=== PATIENT | female | born 1955 | race American Indian/Alaskan Native ===

== ENCOUNTER 2019-12-02 15:41 | Emergency (ER) | payer OTHER ==
[2019-12-02] MEDS ORDERED: oxyCODONE /ACETAMINOPHEN 5-325MG TAB PO ONE (16:49)
--- NOTE | 2019-12-02 16:50 | Emergency Department Report ---
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 LANDED ON L KNEE. NO CO L KNEE PAIN. NO OTHER INJURY. - Related Data Previous Rx's Medication Instructions Recorded Last Taken Type traMADoL [Ultram] 50 mg PO Q6HR PRN #12 tablet 12/02/19 Unknown Rx Allergies Allergy/AdvReac Type Severity Reaction Status Date / Time No Known Allergies Allergy Unverified 12/02/19 16:46 ED Review of Systems ROS: Stated complaint: L KNEE PAIN FROM GROUND LEVEL FALL Other details as noted in HPI Comment: All other systems reviewed and negative ED Past Medical Hx - Past Medical History Previous Medical History?: Yes Additional medical history: Hypothyroidism - Surgical History Past Surgical History?: No - Family History Family history: no significant - Social History Smoking Status: Never Smoker Substance Use Type: None - Medications Home Medications: Home Medications Medication Instructions Recorded Confirmed Last Taken Type traMADoL [Ultram] 50 mg PO Q6HR PRN #12 tablet 12/02/19 Unknown Rx ED Physical Exam - General Limitations: No Limitations General appearance: alert, in no apparent distress - Head Head exam: Present: atraumatic, normocephalic - Eye Eye exam: Present: normal appearance - ENT ENT exam: Present: mucous membranes moist - Neck Neck exam: Present: normal inspection - Respiratory Respiratory exam: Present: normal lung sounds bilaterally. Absent: respiratory distress - Cardiovascular Cardiovascular Exam: Present: regular rate, normal rhythm. Absent: systolic murmur, diastolic murmur, rubs, gallop - GI/Abdominal GI/Abdominal exam: Present: soft, normal bowel sounds - Extremities Exam Extremities exam: Present: normal inspection - Expanded Lower Extremity Exam Left Knee exam: Present: tenderness, swelling, erythema Lower Leg exam: Present: normal inspection Neuro vascular tendon exam: Present: no vascular compromise - Back Exam Back exam: Present: normal inspection - Neurological Exam Neurological exam: Present: alert, oriented X3 - Psychiatric Psychiatric exam: Present: normal affect, normal mood - Skin Skin exam: Present: warm, dry, intact, normal color. 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 She tripped on shoe lace landing on her left knee. She co left knee pain. She needs a UDS for her job. Neurovasc intact. xray noted Dr Rivera phoned and texted pt medicated for pain ICE to leg immobilize/crutches dc home with ortho follow up david NON WEIGHT BEARING NEEDS TO SEE ORTHO DAVID Vital Signs 12/02/19 12/02/19 12/02/19 16:43 16:47 17:36 Temperature 98.3 F Pulse Rate 71 Respiratory 16 16 16 Rate Blood Pressure 149/81 O2 Sat by Pulse 97 97 Oximetry - Differential Diagnosis ro fx Critical care attestation.: If time is entered above; I have spent that time in minutes in the direct care of this critically ill patient, excluding procedure time. ED Disposition Clinical Impression: Patellar fracture, Fall from ground level Disposition: DC-01 TO HOME OR SELFCARE Is pt being admited?: No Does the pt Need Aspirin: No Condition: Stable Instructions: Patellar Fracture (ED) Additional Instructions: ICE REST ELEVATE IMMOBILIZE CRUTCHES MOTRIN AND TYLENOL CAN BE USED FOR MILD/MODERATE PAIN ULTRAM FOR SEVERE PAIN DIET TOLERATED FOLLOW UP WITH ORTHO MD DAVID REFERRAL BELOW Prescriptions: traMADoL [Ultram] 50 mg PO Q6HR PRN #12 tablet PRN Reason: Pain Referrals: DENNIS RIVERA MD [Staff Physician] - 3-5 Days Time of Disposition: 17:16
--- NOTE | 2019-12-02 17:17 | XRay Report ---
Left knee 3 views INDICATION: Left knee pain following injury : Transversely oriented fracture through the mid portion of the patella. There is a comminuted fragme nt identified along the inferior pole of patella. Large lipohemarthrosis within the knee. Signer Name: Miller Samaniego MD Signed: 12/02/2019 5:13 PM Workstation Name: [id number]
[2019-12-02] MEDS ORDERED: KETOROLAC 60 MG/2 ML INJ IM ONE (17:47)
[2019-12-02 19:09] VITALS: BP 155/88
== END 2019-12-02 19:10 | disposition home or self-care (01) ==
LOC: ED 15:41
DX: S82.042A Displaced comminuted fracture of left patella, initial encounter for closed fracture (principal); E03.9 Hypothyroidism, unspecified; Z79.899 Other long term (current) drug therapy; W01.0XXA Fall on same level from slipping, tripping and stumbling without subsequent striking against object, initial encounter; Y93.89 Activity, other specified; Y92.89 Other specified places as the place of occurrence of the external cause; Y99.8 Other external cause status
CPT/HCPCS: 73562; 96372; 99284; J1885